=== PATIENT | female | born 1995 | race Two or more races ===

== ENCOUNTER 2023-12-14 15:39 | Emergency (ER) | payer SELFPAY ==
[2023-12-14 15:55] VITALS: BP 100/65; PULSE 66; RESP 18; TEMP 97.9; BMI 24.5
[2023-12-14] MEDS ORDERED: ACETAMINOPHEN 500 MG TABLET (FP) ONE (16:24)
[2023-12-14] MEDS: ACETAMINOPHEN 325 MG TABLET (FP) PO ONE (16:35)
== END 2023-12-14 17:04 | disposition home or self-care (01) ==
LOC: JERFT 15:39
DX: S91.202A Unspecified open wound of left great toe with damage to nail, initial encounter (principal); S90.212A Contusion of left great toe with damage to nail, initial encounter; W22.8XXA Striking against or struck by other objects, initial encounter
CPT/HCPCS: 73660-TC-LT-FY; 99283-25